=== PATIENT | male | born 1950 | race Caucasian/White ===

== ENCOUNTER 2020-09-05 16:01 | Inpatient (IN) | payer MEDICARE, OTHER ==
[~2020-09-05] VITALS: Ht 188 cm; Wt 128.7 kg
[2020-09-05 19:03] LABS: Basophils # (auto) 0 10 ^3/uL (0-0.2); Basophils % (auto) 0.4 % (0.0-2.0); Eosinophils # (auto) 0.4 10 ^3/uL (0-0.8); Eosinophils % (auto) 4.9 % (0.0-7.0); Hematocrit 49.9 % (41.0-53.0); Hemoglobin 16.5 g/dL (13.5-17.5); Lymphocytes # (auto) 1.6 10 ^3/uL (0.4-5.4); Lymphocytes % (auto) 18.9 % (10.0-50.0); Mean Corpuscular Hemoglobin 28.7 pg (28.0-32.0); Mean Corpuscular Volume 87.1 fL (80.0-100.0); Monocytes # (auto) 0.7 10 ^3/uL (0-1.3); Monocytes % (auto) 8.6 % (0.0-12.0); Neutrophils # (auto) 5.7 10 ^3/uL (1.6-8.6); Neutrophils % (auto) 67.2 % (37.0-80.0); Nucleated Red Blood Cells % 0.1 %; Platelet Count (auto) 196 10^3/uL (140-450); Red Blood Cells 5.73 10^6/uL (4.5-5.90); Red Cell Distribution Width 14.6 % (11.8-14.3); White Blood Cell 8.4 10^3/uL (4.4-10.8)
[2020-09-05] MEDS ORDERED: cefTRIAXone 1GM/50ML D5W 50 ML IV ONE (19:15)
[2020-09-05] MEDS ORDERED: VANCOMYCIN 1GM/250ML 250 ML IV ONE (19:15)
[2020-09-05 19:19] LABS: Albumin 4.2 g/dL (3.4-5.0); Calcium 8.7 mg/dL (8.5-10.1); Potassium 4.2 mmol/L (3.5-5.1)
[2020-09-05 19:28] LABS: BUN/Creatinine Ratio 17.8; Bilirubin, Total 0.8 mg/dL (0.2-1.0); Total Protein 7.6 g/dL (6.4-8.2)
[2020-09-05 20:00] LABS: INR 1.04 (0.9-1.15); Partial Thromboplastin Time 30.2 sec (23.0-31.2)
[2020-09-05] MEDS ORDERED: ENOXAPARIN SOD 100 MG/1 ML SYRINGE SC ONE (20:15)
[2020-09-05] MEDS ORDERED: ONDANSETRON HCL 4 MG/2 ML VIAL IV PRN (21:30)
[2020-09-05] MEDS ORDERED: ACETAMINOPHEN 325 MG TAB PO PRN (21:30)
[2020-09-05] MEDS ORDERED: TEMAZEPAM 15 MG CAP PO PRN (21:30)
[2020-09-05] MEDS ORDERED: HYDROcodone-ACET 5/325MG TAB PO PRN (21:30)
--- NOTE | 2020-09-05 22:35 | NUR ---
[facility] admit from [facility] admitted to [facility] after SBAR received. Patient alert and oriented x4 to TRES JIMENEZ RN primary RN, 202, and unit policies regarding patient care and visiting hours. Bed locked in low position, call light within reach. Patient weighed by bedscale and encouraged to call if they need something. All questions and concerns addressed, patient verbalized understanding. Note:
[2020-09-05 22:40] VITALS: BP 138/73
[2020-09-05 22:45] VITALS: BP 138/73
--- NOTE | 2020-09-05 23:09 | NUR ---
Educate about safety precaution and call for assistance.
[2020-09-05] MEDS: ENOXAPARIN SOD 150 MG/1 ML SYRINGE SC SCH (23:17)
[2020-09-05] MEDS: FAMOTIDINE 20 MG TAB PO SCH (23:17)
[2020-09-06] VITALS (7 sets, daily range): BP systolic 121–153; BP diastolic 69–84
[2020-09-06 05:32] LABS: Basophils # (auto) 0 10 ^3/uL (0-0.2); Basophils % (auto) 0.4 % (0.0-2.0); Eosinophils # (auto) 0.6 10 ^3/uL (0-0.8); Eosinophils % (auto) 9.5 % (0.0-7.0); Hematocrit 45.5 % (41.0-53.0); Hemoglobin 15.3 g/dL (13.5-17.5); Lymphocytes # (auto) 1.9 10 ^3/uL (0.4-5.4); Lymphocytes % (auto) 31.7 % (10.0-50.0); Mean Corpuscular Hemoglobin 29.2 pg (28.0-32.0); Mean Corpuscular Hgb Conc. 33.6 g/dL (32.0-36.0); Monocytes # (auto) 0.7 10 ^3/uL (0-1.3); Monocytes % (auto) 10.7 % (0.0-12.0); Neutrophils # (auto) 2.9 10 ^3/uL (1.6-8.6); Neutrophils % (auto) 47.7 % (37.0-80.0); Nucleated Red Blood Cells % 0.2 %; Platelet Count (auto) 175 10^3/uL (140-450); Red Blood Cells 5.23 10^6/uL (4.5-5.90); Red Cell Distribution Width 14.7 % (11.8-14.3); White Blood Cell 6.1 10^3/uL (4.4-10.8)
[2020-09-06 05:50] LABS: Calcium 8.4 mg/dL (8.5-10.1); INR 1.09 (0.9-1.15); Partial Thromboplastin Time 38.9 sec (23.0-31.2); Potassium 4.2 mmol/L (3.5-5.1)
[2020-09-06 05:53] LABS: BUN/Creatinine Ratio 17.8
--- NOTE | 2020-09-06 06:02 | NUR ---
PATIENT COMPLAINED OF ITCHING ON HIS LEFT LOWER EXTREMITY. PAGED HOSPITALIST. WAITING FOR CALL BACK.
--- NOTE | 2020-09-06 06:53 | NUR ---
Order obtained from hospitalist Margaritoadryl 25 mg PO x 1 dose. will carry order.
[2020-09-06] MEDS ORDERED: diphenhdrAMINE HCL 25 MG CAP PO ONE ×2 (07:00→12:45)
--- NOTE | 2020-09-06 07:00 | NUR ---
Closing Shift Report Patient asleep right now. No SOB and no acute distress seen. bed in low locked position, call light within reach, non skid socks on. Fall precaution observed.
--- NOTE | 2020-09-06 07:50 | NUR ---
Opening Shift Note Assumed care of patient, awake and alert. No S/S of distress/SOB or pain. Instructed on POC and to call for assist PRN, will continue to monitor for changes Q1hr and PRN. Bed locked in lowest position with two side rails up and call light in reach.
[2020-09-06] MEDS: FAMOTIDINE 20 MG TAB PO SCH ×2 (09:40→21:37)
[2020-09-06] MEDS: ENOXAPARIN SOD 150 MG/1 ML SYRINGE SC SCH ×2 (09:40→21:38)
--- NOTE | 2020-09-06 10:30 | NUR ---
PATIENT WEIGHT UPDATED
[2020-09-06] MEDS ORDERED: levoFLOXacin 500MG 100 ML IV ONE (12:00)
[2020-09-06] MEDS ORDERED: AZITHROMYCIN 250 MG TAB PO ONE (12:00)
--- NOTE | 2020-09-06 12:00 | NUR ---
PATIENT REFUSED COVID SWAB, EDUCATED PATIENT AND PATIENT STATES HE HAS NOT BEEN AROUND ANY POSITIVE COVID PATIENTS AND AT THIS TIME WOULD LIKE TO OPT OUT OF THE TEST. PATIENT VERBALIZED UNDERSTANDING OF THE NEED ONCE EXPLAINED AND STILL REFUSES.
[2020-09-06] MEDS ORDERED: IOHEXOL 350 MG/ML 100ML IJ ONE (13:33)
--- NOTE | 2020-09-06 18:44 | NUR ---
PATIENT TAKEN TO CT LATE STILL NO RESULTS BACK FROM CT. WILL ENDORSE DR NASH ORDER TO NOC NURSE.
--- NOTE | 2020-09-06 19:40 | NUR ---
Opening Shift Note Assumed care of patient. Pt is awake and alert, oriented X 4. No S/S of respiratory distress. Pt denies pain at this time. Bed is in lowest locked position, bed rails up X 2, call light is within reach. Instructed on POC and to call for assistance PRN. Will continue to monitor for changes Q1hr and PRN.
--- NOTE | 2020-09-06 19:56 | NUR ---
CT angio result Received call from imaging regarding pt's agio. Was told no calls to Dr. Sparks after 1700. Called hospitalist to inform of abnormal results. All information pertaining the patient and CT angio results was given. Dr. Michel said he would take care of the patient and take necessary steps based on CT angio results. Will continue pt's care.
[2020-09-06] MEDS ORDERED: ENOXAPARIN SOD 100 MG/1 ML SYRINGE SC ONE (20:00)
[2020-09-07] MEDS: diphenhdrAMINE HCL 25 MG CAP PO PRN (02:15)
[2020-09-07 05:00] VITALS: BP 108/50
[2020-09-07 08:00] VITALS: BP 126/73
[2020-09-07 08:16] VITALS: BP 130/69
[2020-09-07] MEDS: levoFLOXacin 500MG 100 ML IV SCH (10:00)
[2020-09-07] MEDS: ENOXAPARIN SOD 150 MG/1 ML SYRINGE SC SCH ×2 (10:00→22:05)
[2020-09-07] MEDS: FAMOTIDINE 20 MG TAB PO SCH ×2 (10:00→22:05)
[2020-09-07] MEDS: AZITHROMYCIN 250 MG TAB PO SCH (10:00)
--- NOTE | 2020-09-07 10:36 | NUR ---
COVID SWAB WALKED TO LAB
[2020-09-07 12:50] VITALS: BP 108/50
--- NOTE | 2020-09-07 19:35 | NUR ---
Opening Shift Note Assumed care of patient. Pt is awake, alert, and oriented X 4. No S/S of respiratory distress. Respirations are regular and non-labored. Pt denies pain at this time. Bed is in lowest locked position, bed rails up X 2, call light is within reach. Instructed on POC and to call for assistance PRN. Will continue to monitor for changes Q1hr and PRN.
[2020-09-07 20:00] VITALS: BP 141/67
[2020-09-07 22:00] VITALS: BP 141/67
[2020-09-08] MEDS: diphenhdrAMINE HCL 25 MG CAP PO PRN ×2 (01:54→21:49)
[2020-09-08 04:33] VITALS: BP 119/56
[2020-09-08 09:00] VITALS: BP 131/71
[2020-09-08 09:27] LABS: Cholesterol 194 mg/dL (< 200)
[2020-09-08 09:29] LABS: HDL Cholesterol 31 mg/dL (40-59); LDL Cholesterol 130 mg/dL (< 100); Triglycerides 208 mg/dL (< 150)
[2020-09-08] MEDS: FAMOTIDINE 20 MG TAB PO SCH ×2 (09:58→21:49)
[2020-09-08] MEDS: AZITHROMYCIN 250 MG TAB PO SCH (09:58)
[2020-09-08] MEDS: ENOXAPARIN SOD 150 MG/1 ML SYRINGE SC SCH ×2 (09:59→21:49)
[2020-09-08] MEDS: levoFLOXacin 500MG 100 ML IV SCH (09:59)
[2020-09-08 13:00] VITALS: BP 115/61
[2020-09-08 16:43] VITALS: BP 136/77
--- NOTE | 2020-09-08 19:35 | NUR ---
OPENING SHIFT NOTE Assumed care of patient who is A&O x4. Currently on RA with no s/s of distress. Denies pain at this time. PIV in left AC is intact and patent. Flushed with 10ml NS. Patient is ambulatory at baseline without the use of assistive devices. Erythema and edema to left lower leg noted. Elevated on 2 pillows. POC discussed and patient verbalizes understanding. Bed is in low locked position with side rails up x2. Call light is within reach and patient encouraged to call for assistance when needed. Will continue to monitor for changes PRN.
[2020-09-08 22:18] VITALS: BP 137/70
--- NOTE | 2020-09-08 23:35 | NUR ---
ROUNDS Patient is awake, alert and oriented. No distress noted. Denies pain at this time. Call light is within reach and patient encouraged to call for assistance when needed. Will continue to monitor for changes PRN.
[2020-09-09 05:11] VITALS: BP 138/78
--- NOTE | 2020-09-09 06:12 | NUR ---
ROUNDS Patient is resting in bed on right side with eyes closed. Respirations are even and non-labored. No distress noted at this time.
--- NOTE | 2020-09-09 07:45 | NUR ---
Opening Shift Note Assumed care of patient, awake and alert. No S/S of distress/SOB or pain. Instructed on POC and to call for assist PRN, will continue to monitor for changes Q1hr and PRN.
--- NOTE | 2020-09-09 08:20 | NUR ---
Dr. Sparks spoke to pt. regarding POC. changed pt. from Lovenox to Eliquis starting at 2200 tonight.
--- NOTE | 2020-09-09 08:30 | NUR ---
This RN called pharmacy to adjust the time that Eliquis is scheduled for. The correct time is starting tonight at [address] Sparks's request.
[2020-09-09] MEDS ORDERED: APIXABAN 5 MG TAB PO SCH (10:00)
[2020-09-09] MEDS ORDERED: ENOXAPARIN SOD 150 MG/1 ML SYRINGE SC ONE (10:00)
[2020-09-09] MEDS: FAMOTIDINE 20 MG TAB PO SCH ×2 (10:21→21:48)
[2020-09-09] MEDS: AZITHROMYCIN 250 MG TAB PO SCH (10:21)
[2020-09-09] MEDS: levoFLOXacin 500MG 100 ML IV SCH (10:21)
--- NOTE | 2020-09-09 11:42 | NUR ---
Nutrition Assessment Est energy needs 2044-1715 kcal (11-14 kcal/kg BW 129.3kg) Est protein needs 86-104g (1-1.2g/kg IBW 86kg) Will reassess prn. Addendum: 09/09/20 at [address] Amended: Links added.
[2020-09-09 12:38] VITALS: BP 121/66
[2020-09-09 16:29] VITALS: BP 124/67
[2020-09-09] MEDS: APIXABAN 5 MG TAB PO SCH (21:48)
[2020-09-09 21:56] VITALS: BP 149/77
[2020-09-10 05:00] VITALS: BP 131/70
[2020-09-10 09:00] VITALS: BP 120/56
--- NOTE | 2020-09-10 10:00 | NUR ---
was at bedside with patient told patient that he will be discharged today with antibiotics and blood thinner. Pt to follow up with primary care provider
[2020-09-10] MEDS: levoFLOXacin 500MG 100 ML IV SCH (10:10)
[2020-09-10] MEDS: FAMOTIDINE 20 MG TAB PO SCH (10:11)
[2020-09-10] MEDS: AZITHROMYCIN 250 MG TAB PO SCH (10:11)
[2020-09-10] MEDS: APIXABAN 5 MG TAB PO SCH (10:11)
--- NOTE | 2020-09-10 15:19 | NUR ---
Discharge instructions given as ordered. Encourage to follow up with Primary Care Provider as instructed , appointment set up for patient. All questions and concerns addressed.Education given on patient diagnosis and prescribed medications. Patient verbalized understanding. Medication reconciliation form completed and copy given to patient. Prescription script given to patient. IV removed with catheter intact, pressure dressing applied. Patient taken to vehicle via wheelchair with all personal belongings, accompanied by staff and family member. No distress noted at time of departure.
[2020-09-11] MEDS ORDERED: levoFLOXacin 500 MG TAB PO SCH (10:00)
== END 2020-09-10 15:51 | disposition home or self-care (01) | DRG 299 ==
LOC: ER 16:01 → OVERFLOW 16:02 → CENTRAL 22:35 → EAST 09-09 23:20
PROVIDERS: ADMIT Nurse Practitioner; ATTEND Family Medicine
DX: I82.402 Acute embolism and thrombosis of unspecified deep veins of left lower extremity (principal); I26.99 Other pulmonary embolism without acute cor pulmonale; J18.9 Pneumonia, unspecified organism; Z68.44 Body mass index [BMI] 60.0-69.9, adult; E66.01 Morbid (severe) obesity due to excess calories; M79.89 Other specified soft tissue disorders; Z20.828 Contact with and (suspected) exposure to other viral communicable diseases; Z88.0 Allergy status to penicillin
CPT/HCPCS: 36415; 71045; 71275; 80048; 80053; 80061; 83605; 85025; 85379; 85610; 85730; 87040; 93926; 93971; 96365; 96367; 96372; G0378; J0696; J1956